=== PATIENT | male | born 1960 | race Caucasian/White ===

== ENCOUNTER → 2017-10-14 | Outpatient (CLI) | payer MEDICAID ==
[2017-10-14 11:39] LABS: D-DIMER 0.47 mg/L FEU (0.15-0.50)
== END ==
LOC: LAB 10:11
PROVIDERS: Family Medicine
DX: R07.9 Chest pain, unspecified (principal)

== ENCOUNTER 2017-12-03 23:26 | Emergency (ER) | payer MEDICAID ==
[~2017-12-03] VITALS: Ht 172.7 cm; Wt 109.1 kg
[2017-12-03 23:52] LABS: BASO # 0.1 (0.02-0.10); EOS # 0.4 (0.04-0.40); EOS % 2.8 % (0.0-4.0); HEMATOCRIT 45.7 % (42.0-52.0); HEMOGLOBIN 15.8 g/dL (13.5-18.0); LYMPH# 2.5 (1.50-4.00); MEAN CELL VOLUME 84 fl (78-100); MEAN CORPUSCULAR HEMOGLOBIN 29 pg (27-31); MEAN CORPUSCULAR HGB CONC 35 g/dL (33-37); MEAN PLATELET VOLUME 9.9 fl (7.4-10.4); MONO # 0.9 (0.20-0.80); PLATELET COUNT 353 K/mm3 (130-400); RED BLOOD COUNT 5.43 M/mm3 (4.20-5.60); RED CELL DISTRIBUTION WIDTH 13.6 % (11.5-14.5); WHITE BLOOD COUNT 12.9 K/mm3 (4.8-10.8)
[2017-12-03 23:58] LABS: NEU # 9.1 (1.40-6.50)
[2017-12-04 00:03] LABS: ALBUMIN 4.7 g/dL (3.5-5.0); CALCIUM 9.1 mg/dL (8.4-10.2); POTASSIUM 3.6 mmol/L (3.6-5.0); TOTAL BILIRUBIN 0.6 mg/dL (0.2-1.3); TOTAL PROTEIN 7.9 g/dL (6.3-8.2)
[2017-12-04 01:06] LABS: URINE WBC 0 /hpf (0-3)
[2017-12-04 01:22] LABS: URINE APPEARANCE CLEAR; URINE COLOR YELLOW
[2017-12-04 01:23] LABS: URINE BILIRUBIN NEGATIVE (NEGATIVE); URINE BLOOD NEGATIVE (NEGATIVE); URINE KETONE NEGATIVE (NEGATIVE); URINE LEUKOCYTE ESTERASE NEGATIVE (NEGATIVE); URINE NITRATE NEGATIVE (NEGATIVE); URINE PROTEIN(semi-quant) NEGATIVE (NEGATIVE); URINE UROBILINOGEN NORMAL (NORMAL)
[2017-12-04] MEDS ORDERED: NORVASC 10MG10 MG PO (01:49)
[2017-12-04] MEDS ORDERED: ZESTRIL40 M1 PO (01:49)
[2017-12-04 02:35] VITALS: BP 138/75
== END 2017-12-04 02:35 | disposition home or self-care (01) ==
LOC: ED 23:26
PROVIDERS: Nurse Practitioner Family
DX: R10.84 Generalized abdominal pain (principal); R11.2 Nausea with vomiting, unspecified; R19.7 Diarrhea, unspecified; E11.9 Type 2 diabetes mellitus without complications; I10 Essential (primary) hypertension; Z79.899 Other long term (current) drug therapy; F17.210 Nicotine dependence, cigarettes, uncomplicated
CPT/HCPCS: J1170; J1885; J2270; J2405; J7030; Q9967

== ENCOUNTER → 2017-12-09 | Outpatient (CLI) | payer MEDICAID ==
[2017-12-04 02:35] VITALS: BP 138/75
[~2017-12-09] MED LIST: NORVASC 10MG10 MG PO; ZESTRIL40 M1 PO
== END ==
LOC: RAD 08:25
DX: K80.20 Calculus of gallbladder without cholecystitis without obstruction (principal); K76.9 Liver disease, unspecified

== ENCOUNTER 2019-08-22 12:15 | Emergency (ER) | payer OTHER, MEDICAID ==
[2019-08-22] MEDS ORDERED: OMEPRAZOLE40 MG PO (12:23)
[2019-08-22] MEDS ORDERED: SIMVASTATIN10 M1 PO (12:23)
[2019-08-22] MEDS ORDERED: MELOXICAM15 MG PO (12:23)
[2019-08-22] MEDS ORDERED: HYDROCHLOROTH12.5 M1 PO (12:24)
[2019-08-22 12:58] LABS: BASO # 0.1 (0.02-0.10); EOS # 0.5 (0.04-0.40); EOS % 4.8 % (0.0-4.0); HEMOGLOBIN 16.4 g/dL (13.5-18.0); LYMPH# 3.1 (1.50-4.00); MEAN CELL VOLUME 83 fl (78-100); MEAN CORPUSCULAR HEMOGLOBIN 29 pg (27-31); MEAN CORPUSCULAR HGB CONC 35 g/dL (33-37); MEAN PLATELET VOLUME 9.5 fl (7.4-10.4); MONO # 0.8 (0.20-0.80); NEU # 6.4 (1.40-6.50); PLATELET COUNT 325 K/mm3 (130-400); RED BLOOD COUNT 5.67 M/mm3 (4.20-5.60); RED CELL DISTRIBUTION WIDTH 13.3 % (11.5-14.5); WHITE BLOOD COUNT 10.9 K/mm3 (4.8-10.8)
[2019-08-22 13:07] LABS: ALBUMIN 4.2 g/dL (3.5-5.0); POTASSIUM 3.3 mmol/L (3.5-5.1)
[2019-08-22 13:10] LABS: TOTAL PROTEIN 7.2 g/dL (6.4-8.3)
[2019-08-22 13:11] LABS: TOTAL BILIRUBIN 0.3 mg/dL (0.2-1.2)
[2019-08-22] MEDS ORDERED: LABETALOL HCL100 MG PO (14:08)
[2019-08-22] MEDS ORDERED: HYDROCHLOROTHIA50 M1 PO (14:08)
[2019-08-22 14:14] VITALS: BP 165/89
== END 2019-08-22 14:13 | disposition home or self-care (01) ==
LOC: ED 12:15
PROVIDERS: Family Medicine
DX: I16.0 Hypertensive urgency (principal); K21.9 Gastro-esophageal reflux disease without esophagitis; I10 Essential (primary) hypertension; F17.210 Nicotine dependence, cigarettes, uncomplicated; Z90.49 Acquired absence of other specified parts of digestive tract

== ENCOUNTER → 2020-08-31 | Day surgery (SDC) | payer MEDICARE ==
[~2020-08-31] MED LIST changes: +HYDROCHLOROTH12.5 M1 PO; +HYDROCHLOROTHIA50 M1 PO; +LABETALOL HCL100 MG PO; +MELOXICAM15 MG PO; +OMEPRAZOLE40 MG PO; +SIMVASTATIN10 M1 PO
== END | disposition home or self-care (01) ==
LOC: MSO 10:23
DX: H25.13 Age-related nuclear cataract, bilateral (principal); E11.36 Type 2 diabetes mellitus with diabetic cataract; H25.013 Cortical age-related cataract, bilateral; I10 Essential (primary) hypertension; K21.9 Gastro-esophageal reflux disease without esophagitis; E66.9 Obesity, unspecified; C44.90 Unspecified malignant neoplasm of skin, unspecified; Z79.84 Long term (current) use of oral hypoglycemic drugs; Z79.899 Other long term (current) drug therapy
CPT/HCPCS: 00142; J0171; J2250; J2370; J3010; V2632

== ENCOUNTER 2023-04-30 15:32 | Emergency (ER) | payer MEDICARE ==
[~2023-04-30] VITALS: Ht 175.3 cm; Wt 109.1 kg
[2023-04-30 15:45] VITALS: BP 140/87
[2023-04-30] MEDS ORDERED: Albuterol/Ipratropium 3 MG-0.5 MG/3 ML Neb Soln IH ONE ×2 (16:00→17:30)
[2023-04-30] MEDS ORDERED: Budesonide Neb Soln 0.5 MG/2 ML AMP IH ONE (16:00)
[2023-04-30] MEDS ORDERED: dexAMETHasone 4 MG/ML VIAL IV ONE (16:15)
[2023-04-30 16:23] LABS: BASO # 0.04 K/mm3 (0.02-0.10); EOS # 0.35 K/mm3 (0.04-0.40); HEMATOCRIT 41.1 % (42.0-52.0); HEMOGLOBIN 12.3 g/dL (13.5-18.0); LYMPH# 2.78 K/mm3 (1.50-4.00); MEAN CELL VOLUME 68 fl (78-100); MEAN CORPUSCULAR HEMOGLOBIN 20 pg (27-31); MEAN CORPUSCULAR HGB CONC 30 g/dL (33-37); MEAN PLATELET VOLUME 9.4 fl (7.4-10.4); MONO # 0.89 K/mm3 (0.20-0.80); NEU # 7.65 K/mm3 (1.40-6.50); PLATELET COUNT 485 K/mm3 (130-400); RED BLOOD COUNT 6.07 M/mm3 (4.20-5.60); WHITE BLOOD COUNT 11.7 K/mm3 (4.8-10.8)
[2023-04-30] MEDS ORDERED: Ondansetron 4 MG/2 ML VIAL IV ONE (17:15)
[2023-04-30] MEDS ORDERED: Famotidine 20 MG TAB PO ONE (17:15)
[2023-04-30] MEDS ORDERED: cefTRIAXone 1 G in Water For Injection,Sterile 10 ML IV SCH (17:30)
[2023-04-30 17:41] LABS: ALBUMIN 4.3 g/dL (3.4-4.8)
[2023-04-30 17:42] LABS: CALCIUM 9.2 mg/dL (8.3-10.5)
[2023-04-30 17:44] LABS: TOTAL PROTEIN 7.5 g/dL (6.2-8.1)
[2023-04-30 17:45] LABS: TOTAL BILIRUBIN 0.3 mg/dL (0.2-1.2)
[2023-04-30] MEDS ORDERED: Iohexol 350 - 100 ML VIAL IV ONE (18:27)
[2023-04-30] MEDS ORDERED: FLOMAX0.4 MG PO (20:38)
[2023-04-30] MEDS ORDERED: LISINOPRIL40 MG PO (20:38)
[2023-05-01] MEDS ORDERED: TRULICITY0.75 MG/0. SC (00:43)
[2023-05-01] MEDS ORDERED: HYGROTON 2525 MG/TAB PO (08:46)
== END 2023-04-30 20:45 | disposition other institution (70) ==
LOC: ED 15:32
PROVIDERS: Nurse Practitioner Family
DX: J44.1 Chronic obstructive pulmonary disease with (acute) exacerbation (principal); E87.6 Hypokalemia
CPT/HCPCS: J0696; J1100; J2405; Q9967

== ENCOUNTER → 2023-05-17 | Outpatient (CLI) | payer MEDICARE ==
[~2023-05-17] MED LIST changes: +FLOMAX0.4 MG PO; +HYGROTON 2525 MG/TAB PO; +LISINOPRIL40 MG PO; +TRULICITY0.75 MG/0. SC
== END ==
LOC: RAD 14:45
DX: J90 Pleural effusion, not elsewhere classified (principal); R05.9 Cough, unspecified

== ENCOUNTER 2023-05-20 13:48 | Emergency (ER) | payer MEDICARE ==
[~2023-05-20] VITALS: Ht 170.2 cm; Wt 105.6 kg
[2023-05-20 13:50] VITALS: BP 123/76
== END 2023-05-20 15:02 | disposition home or self-care (01) ==
LOC: ED 13:48
DX: I83.91 Asymptomatic varicose veins of right lower extremity (principal); Z79.02 Long term (current) use of antithrombotics/antiplatelets; Z79.82 Long term (current) use of aspirin; Z95.1 Presence of aortocoronary bypass graft

== ENCOUNTER 2023-05-21 10:55 | Outpatient (RCR) | payer MEDICARE | END 2023-05-23 | disposition home or self-care (01) | LOC: CARDREHAB | DX: Z48.812 Encounter for surgical aftercare following surgery on the circulatory system (principal); Z95.1 Presence of aortocoronary bypass graft ==

== ENCOUNTER 2023-06-24 10:48 | Outpatient (RCR) | payer MEDICARE | END 2023-07-23 | disposition home or self-care (01) | LOC: CARDREHAB | DX: Z48.812 Encounter for surgical aftercare following surgery on the circulatory system (principal); Z95.1 Presence of aortocoronary bypass graft ==

== ENCOUNTER → 2023-12-26 | Outpatient (CLI) | payer MEDICARE | LOC: RAD 15:53 | DX: M16.12 Unilateral primary osteoarthritis, left hip (principal) ==

== ENCOUNTER → 2024-04-03 | Outpatient (CLI) | payer MEDICARE ==
[~2024-04-03] MED LIST changes: +Gadoterate 20 ML VIAL IV ONE
== END ==
LOC: RAD 13:46
DX: M51.360 Other intervertebral disc degeneration, lumbar region with discogenic back pain only (principal); M47.816 Spondylosis without myelopathy or radiculopathy, lumbar region; M48.061 Spinal stenosis, lumbar region without neurogenic claudication; M24.28 Disorder of ligament, vertebrae; M51.370 Other intervertebral disc degeneration, lumbosacral region with discogenic back pain only; M47.817 Spondylosis without myelopathy or radiculopathy, lumbosacral region; M48.07 Spinal stenosis, lumbosacral region; M47.812 Spondylosis without myelopathy or radiculopathy, cervical region; M50.321 Other cervical disc degeneration at C4-C5 level; M50.323 Other cervical disc degeneration at C6-C7 level; M48.02 Spinal stenosis, cervical region; Z98.890 Other specified postprocedural states; Z98.1 Arthrodesis status
CPT/HCPCS: A9575